=== PATIENT | male | born 1980 | race Caucasian/White ===

== ENCOUNTER 2017-08-20 13:25 | Emergency (ER) | payer SELFPAY ==
[~2017-08-20] VITALS: Ht 182.9 cm; Wt 109.0 kg
[~2017-08-20 13:25] MED LIST: ACYC-113 PO; HYDR-3307
[2017-08-20 13:41] VITALS: BP 142/90
[2017-08-20] MEDS ORDERED: VENL75CA PO (16:10)
[2017-08-20] MEDS ORDERED: AZITHROMYCIN 500 MG TABLET ONE (16:20)
[2017-08-20] MEDS ORDERED: CEFTRIAXONE 250 MG ONE (16:20)
[2017-08-20] MEDS ORDERED: CEFTRIAXONE 250 MG IM ONE (16:30)
[2017-08-20] MEDS ORDERED: AZITHROMYCIN 500 MG TABLET PO ONE (16:30)
== END 2017-08-20 17:06 | disposition home or self-care (01) ==
LOC: ED 17:02
DX: A56.01 Chlamydial cystitis and urethritis (principal)
CPT/HCPCS: 81003; 96372; 99283; J0696

== ENCOUNTER 2018-05-05 11:25 | Emergency (ER) | payer MEDICAID, OTHER ==
[~2018-05-05] VITALS: Ht 182.9 cm; Wt 98.0 kg
[~2018-05-05 11:25] MED LIST changes: +VENL75CA PO
[2018-05-05 12:08] VITALS: BP 148/88
== END 2018-05-05 12:40 | disposition home or self-care (01) ==
LOC: ED 12:00
DX: I10 Essential (primary) hypertension (principal); Z00.00 Encounter for general adult medical examination without abnormal findings; F17.210 Nicotine dependence, cigarettes, uncomplicated
CPT/HCPCS: 99281